=== PATIENT | female | born 1995 | race Two or more races ===

== ENCOUNTER 2019-11-20 00:17 | Emergency (ER) | payer OTHER ==
[~2019-11-20] VITALS: Ht 154.9 cm; Wt 66.2 kg
[2019-11-20 00:22] VITALS: BP 124/80
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
[2019-11-20] MEDS ORDERED: IBUPROFEN600 M1 ORAL (00:36)
[2019-11-20 01:07] VITALS: BP 122/79
--- NOTE | 2019-11-20 01:13 | Diagnostic Imaging Report ---
EXAM: XR Left Elbow Complete, 3 Views CLINICAL HISTORY: INJ TECHNIQUE: Frontal, lateral and oblique views of the left elbow. COMPARISON: No relevant prior studies available. FINDINGS: Bones/joints: Unremarkable. No fracture. No dislocation. Soft tissues: Unremarkable. IMPRESSION: No fracture
== END 2019-11-20 01:07 | disposition home or self-care (01) ==
LOC: EDBD 00:17 → EMR 01:01
DX: S50.02XA Contusion of left elbow, initial encounter (principal); X58.XXXA Exposure to other specified factors, initial encounter; Y92.9 Unspecified place or not applicable; Y99.8 Other external cause status
CPT/HCPCS: 99283